=== PATIENT | female | born 1980 | race Caucasian/White ===

== ENCOUNTER 2021-08-26 14:29 | Outpatient (RCR) | payer BC, SELFPAY | END 2021-08-26 23:59 | disposition home or self-care (01) | LOC: HO.PHPA 14:29 | PROVIDERS: Visit Provider Psychiatry & Neurology Psychiatry | DX: F33.2 Major depressive disorder, recurrent severe without psychotic features (principal); F41.1 Generalized anxiety disorder; F12.20 Cannabis dependence, uncomplicated | CPT/HCPCS: 90791 ==